=== PATIENT | female | born 1980 | race Caucasian/White ===

== ENCOUNTER 2018-01-22 02:26 | Observation (INO) | payer BC, OTHER ==
[2018-01-22] MEDS ORDERED: Sodium Chloride 0.9% 1,000 ML IV STA ×2 (03:26→06:48)
--- NOTE | 2018-01-22 03:30 | ED PDOC ---
Arrival/HPI - General Chief Complaint: Abdominal Pain Time Seen by Provider: 01/22/18 02:27 Historian: Patient - History of Present Illness Narrative History of Present Illness (Text): 01/22/18 03:38 A 37 year old female presents to the emergency department complaining of sudden onset abdominal cramp-like discomfort, more on the left side of abdomen. Patient reports pain developed after eating out at a restaurant earlier today. Patient reports pain associated with nausea and an episode of vomiting. Patient denies any fever, back pain, urinary complaints or any other complaints at this time. Symptom Onset: Sudden Symptom Course: Unchanged Activities at Onset: Rest Context: Home Past Medical History - Provider Review Nursing Documentation Reviewed: Yes - Infectious Disease Hx of Infectious Diseases: None - Tetanus Immunization Tetanus Immunization: Unknown - Past Medical History Past Medical History: No Previous - Cardiac Hx Cardiac Disorders: No - Pulmonary Hx Asthma: Yes - Neurological Hx Migraine: Yes - HEENT Hx HEENT Disorder: No - Renal Hx Renal Disorder: No - Endocrine/Metabolic Hx Endocrine Disorders: No - Hematological/Oncological Hx Blood Disorders: No - Integumentary Hx Dermatological Disorder: No - Musculoskeletal/Rheumatological Hx Musculoskeletal Disorders: No - Gastrointestinal Hx Gastrointestinal Disorders: No - Genitourinary/Gynecological Hx Genitourinary Disorders: No - Psychiatric Hx Psychophysiologic Disorder: No Hx Depression: No Hx Emotional Abuse: No Hx Physical Abuse: No Hx Substance Use: No - Surgical History Other/Comment: tubaligation reversal tummy tuck - Anesthesia Hx Anesthesia: No - Suicidal Assessment Feels Threatened In Home Enviroment: No Family/Social History - Physician Review Nursing Documentation Reviewed: Yes Family/Social History: No Known Family HX Smoking Status: Never Smoked Hx Alcohol Use: No Hx Substance Use: No Hx Substance Use Treatment: No Allergies/Home Meds Allergies/Adverse Reactions: Allergies morphine Allergy (Intermediate, Verified 01/22/18 03:25) RASH Home Medications: Home Meds Medication Instructions Recorded Confirmed No Known Home Med 12/23/15 01/22/18 Review of Systems - Physician Review All systems were reviewed & negative as marked: Yes - Review of Systems Constitutional: absent: Fevers Gastrointestinal: Abdominal Pain (left side), Nausea, Vomiting Genitourinary Female: absent: Dysuria, Frequency, Hematuria, Urine Output Changes Musculoskeletal: absent: Back Pain Physical Exam Vital Signs Reviewed: Yes Vital Signs Temp Pulse Resp BP Pulse Ox 01/22/18 05:19 85 18 114/68 98 01/22/18 03:19 98.1 F 80 19 136/61 100 Temperature: Afebrile Blood Pressure: Normal Pulse: Regular Respiratory Rate: Normal Appearance: Positive for: Well-Appearing, Non-Toxic, Comfortable Pain Distress: None Mental Status: Positive for: Alert and Oriented X 3 - Systems Exam Head: Present: Atraumatic, Normocephalic Pupils: Present: PERRL Extroacular Muscles: Present: EOMI Conjunctiva: Present: Normal Mouth: Present: Moist Mucous Membranes Neck: Present: Normal Range of Motion Respiratory/Chest: Present: Clear to Auscultation, Good Air Exchange. No: Respiratory Distress, Accessory Muscle Use Cardiovascular: Present: Regular Rate and Rhythm, Normal S1, S2. No: Murmurs Abdomen: Present: Tenderness (left lower abd area), Normal Bowel Sounds, Guarding (voluntary). No: Rebound Back: Present: Normal Inspection Upper Extremity: Present: Normal Inspection. No: Cyanosis, Edema Lower Extremity: Present: Normal Inspection. No: Edema Neurological: Present: GCS=15, CN II-XII Intact, Speech Normal Skin: Present: Warm, Dry, Normal Color. No: Rashes Psychiatric: Present: Alert, Oriented x 3, Normal Insight, Normal Concentration Medical Decision Making ED Course and Treatment: 01/22/18 03:34 Impression: A 37 year old female with abdominal pain, nausea and vomiting. Plan: -- labs -- Urinalysis -- Pepcid, Toradol, IV fluids, Zofran -- Reassess and disposition Progress Notes: CT Abdomen and Pelvis With Intravenous Contrast FINDINGS: Lung bases: Minimal atelectasis/scarring. ABDOMEN: Liver: Probable fatty infiltration. < 0.5 cm lesion. Gallbladder and bile ducts: No calcified stones. No ductal dilation. Pancreas: No ductal dilation. No mass. Spleen: No splenomegaly. Adrenals: No mass. Kidneys and ureters: Too small to characterize lesion within LEFT kidney. No hydronephrosis. Stomach and bowel: Segmental areas of apparent aolk-ve-skstdpld mural thickening of large bowel. No associated inflammatory stranding. No obstruction. PELVIS: Appendix: Normal caliber. No definite inflammation. Bladder: Unremarkable. Reproductive: Multiple ovarian follicles. ABDOMEN and PELVIS: Intraperitoneal space: Trace free fluid within pelvis. No free air. Bones/joints: No acute fracture. Soft tissues: Unremarkable. Vasculature: Unremarkable. No aneurysm. Lymph nodes: No pathologically enlarged lymph nodes. IMPRESSION: 1. Probable colitis. Clinical correlation is needed. 2. Liver lesion. For patients with low to average risk of malignancy, no further follow-up is necessary. For patients with high risk of malignancy (known malignancy that can metastasize or other risk factors), recommend follow-up abdominal CT or MR in 6 months. 3. Incidental/non-acute findings are described above. Dictated and Authenticated by: Bernard Braun MD 01/22/2018 6:04 AM Eastern Time ([place] & [place]) 01/22/18 06:46 Case was d/w who accepts to his service.Request on consult.president + publisher notified. - Lab Interpretations Lab Results: 01/22/18 03:55 01/22/18 03:55 Lab Results 01/22/18 03:55: WBC 14.3 H D, RBC 4.39, Hgb 12.4, Hct 36.7, MCV 83.6, MCH 28.2, MCHC 33.8, RDW 12.6, Plt Count 247, MPV 9.3 01/22/18 03:55: Sodium 142, Potassium 3.8, Chloride 106, Carbon Dioxide 24, Anion Gap 17, BUN 14, Creatinine 1.0, Est GFR ( Amer) > 60, Est GFR (Non- Af Amer) > 60, Random Glucose 139 H, Calcium 8.7, Total Bilirubin 0.2, AST 38 H , ALT 71 H, Alkaline Phosphatase 52, Total Protein 6.8, Albumin 4.1, Globulin 2.7, Albumin/Globulin Ratio 1.5, Lipase 100 I have reviewed the lab results: Yes - RAD Interpretation Radiology Orders: 01/22/18 04:47 ABD & PELVIS IV CONTRAST ONLY [CT] Stat - Medication Orders Current Medication Orders: Ceftriaxone Sodium (Rocephin 1 Gram Ivpb) 1 gm in 100 mls @ 200 mls/hr IV ONCE STA PRN Reason: Protocol Stop: 01/22/18 07:10 Metronidazole (Flagyl) 500 mg in 100 mls @ 100 mls/hr IV STAT STA PRN Reason: Protocol Stop: 01/22/18 07:40 Discontinued Medications Famotidine (Pepcid) 20 mg IVP STAT STA Stop: 01/22/18 03:27 Last Admin: 01/22/18 03:53 Dose: 20 mg IVP Administration Document 01/22/18 03:53 RG (Rec: 01/22/18 03:59 RG [id number]) Charges for Administration # of IVP Administrations 1 Sodium Chloride (Sodium Chloride 0.9%) 1,000 mls @ 999 mls/hr IV .Q1H1M STA Stop: 01/22/18 04:26 Last Admin: 01/22/18 03:57 Dose: 999 mls/hr eMAR Start Stop Document 01/22/18 03:57 RG (Rec: 01/22/18 03:59 RG [id number]) Intravenous Solution Start Date 01/22/18 Start Time 03:57 Ketorolac Tromethamine (Toradol) 30 mg IVP ONCE ONE Stop: 01/22/18 03:27 Last Admin: 01/22/18 03:54 Dose: 30 mg MAR Pain Assessment Document 01/22/18 03:54 RG (Rec: 01/22/18 04:00 RG [id number]) Pain Reassessment Is this a pain reassessment? Yes Sleep Is patient sleeping during reassessment? No Presence of Pain Presence of Pain Yes Pain Scale Used Pain Scale Used Numeric Location Upper or Lower Lower Pain Location Body Site Abdomen Description Description Constant Pain Behavior Moaning Guarding Irritability Rubbing Site IVP Administration Document 01/22/18 03:54 RG (Rec: 01/22/18 04:00 RG [id number]) Charges for Administration # of IVP Administrations 1 Re-Assess: MAR Pain Assessment Document 01/22/18 04:54 RG (Rec: 01/22/18 05:27 RG [id number]) Pain Reassessment Is this a pain reassessment? Yes Sleep Is patient sleeping during reassessment? No Presence of Pain Presence of Pain No Ondansetron HCl (Zofran Inj) 4 mg IVP ONCE ONE Stop: 01/22/18 03:27 Last Admin: 01/22/18 03:34 Dose: 4 mg IVP Administration Document 01/22/18 03:34 RG (Rec: 01/22/18 04:00 RG [id number]) Charges for Administration # of IVP Administrations 1 - Scribe Statement The provider has reviewed the documentation as recorded by the Scribe Belqes Cassie Provider Scribe Attestation: All medical record entries made by the Scribe were at my direction and personally dictated by me. I have reviewed the chart and agree that the record accurately reflects my personal performance of the history, physical exam, medical decision making, and the department course for this patient. I have also personally directed, reviewed, and agree with the discharge instructions and disposition. Disposition/Present on Arrival - Present on Arrival Any Indicators Present on Arrival: No History of DVT/PE: No History of Uncontrolled Diabetes: No Urinary Catheter: No History of Decub. Ulcer: No History Surgical Site Infection Following: None - Disposition Have Diagnosis and Disposition been Completed?: Yes Diagnosis: Abdominal pain, Colitis Disposition: HOSPITALIZED Disposition Time: 06:46 Patient Plan: Observation Condition: STABLE Forms: [facility] (Spanish)
[2018-01-22 04:05] LABS: HEMOGLOBIN 12.4 g/dL (12.0-16.0); MEAN CELL VOLUME 83.6 fl (80.0-105.0); MEAN CORPUSCULAR HEMOGLOBIN 28.2 pg (25.0-35.0); MEAN CORPUSCULAR HGB CONC 33.8 g/dl (31.0-37.0); MEAN PLATELET VOLUME 9.3 fl (7.0-11.0); RBC 4.39 10^6/uL (3.5-6.1); RED CELL DISTRIBUTION WIDTH 12.6 % (11.5-14.5); WHITE BLOOD COUNT 14.3 10^3/ul (4.5-11.0)
[2018-01-22 04:16] LABS: ALB/GLOB RATIO 1.5 (1.1-1.8)
[2018-01-22 04:43] LABS: ALBUMIN 4.1 g/dL (3.0-4.8); ALT/SGPT 71 U/L (7-56); AST/SGOT 38 U/L (14-36); BLOOD UREA NITROGEN 14 mg/dL (7-21); CALCIUM 8.7 mg/dL (8.4-10.5); GFR AFRICAN-AMERICAN > 60; GFR NON-AFRICAN AMERICAN > 60; LIPASE 100 U/L (23-300)
[2018-01-22] MEDS ORDERED: Iohexol 350 MG/100 ML VIAL ONE (04:50)
--- NOTE | 2018-01-22 06:04 | CT ---
EXAM: CT Abdomen and Pelvis With Intravenous Contrast CLINICAL HISTORY: 37 years old, female; Pain; Abdominal pain TECHNIQUE: Axial computed tomography images of the abdomen and pelvis with intravenous contrast. All CT scans at this facility use one or more dose reduction techniques, viz.: automated exposure control; ma/kV adjustment per patient size (including targeted exams where dose is matched to indication; i.e. head); or iterative reconstruction technique. Coronal and sagittal reformatted images were created and reviewed. CONTRAST: 96 mL of OMNI 350 administered intravenously. COMPARISON: No relevant prior studies available. FINDINGS: Lung bases: Minimal atelectasis/scarring. ABDOMEN: Liver: Probable fatty infiltration. < 0.5 cm lesion. Gallbladder and bile ducts: No calcified stones. No ductal dilation. Pancreas: No ductal dilation. No mass. Spleen: No splenomegaly. Adrenals: No mass. Kidneys and ureters: Too small to characterize lesion within LEFT kidney. No hydronephrosis. Stomach and bowel: Segmental areas of apparent iotu-hu-iokwuqtq mural thickening of large bowel. No associated inflammatory stranding. No obstruction. PELVIS: Appendix: Normal caliber. No definite inflammation. Bladder: Unremarkable. Reproductive: Multiple ovarian follicles. ABDOMEN and PELVIS: Intraperitoneal space: Trace free fluid within pelvis. No free air. Bones/joints: No acute fracture. Soft tissues: Unremarkable. Vasculature: Unremarkable. No aneurysm. Lymph nodes: No pathologically enlarged lymph nodes. IMPRESSION: 1. Probable colitis. Clinical correlation is needed. 2. Liver lesion. For patients with low to average risk of malignancy, no further follow-up is necessary. For patients with high risk of malignancy (known malignancy that can metastasize or other risk factors), recommend follow-up abdominal CT or MR in 6 months. 3. Incidental/non-acute findings are described above.
[2018-01-22] MEDS ORDERED: cefTRIAXone 1 gm 1 GM/100 ML BAG IV STA (06:41)
[2018-01-22] MEDS ORDERED: metroNIDAZOLE IV 500 mg/100 ml 500 MG/100 ML BAG IV STA (06:41)
[2018-01-22 07:28] LABS: URINE BILIRUBIN NEGATIVE (NEGATIVE); URINE BLOOD NEGATIVE (NEGATIVE); URINE GLUCOSE (UA) NEGATIVE (NEGATIVE); URINE LEUKOCYTE ESTERASE NEGATIVE Leu/uL (NEGATIVE); URINE PROTEIN NEGATIVE mg/dL (<30 mg/dL); URINE UROBILINOGEN 0.2 E.U./dL (<1 E.U./dL)
[2018-01-22 07:32] LABS: INR 0.91 (0.93-1.08); PARTIAL THROMBOPLASTIN TIME 23.6 Seconds (25.1-36.5); PROTHROMBIN TIME 10.4 SECONDS (9.4-12.5)
[2018-01-22 07:34] LABS: URINE APPEARANCE CLEAR (CLEAR); URINE COLOR YELLOW (YELLOW)
[2018-01-22] MEDS: metroNIDAZOLE IV 500 mg/100 ml 500 MG/100 ML BAG IVPB SCH ×3 (07:58→21:57)
--- NOTE | 2018-01-22 08:12 | CP.PCM.HP ---
History of Present Illness - History of Present Illness History of Present Illness: H&P for Dr. Erwin's service - Oscar PGY2 cc: abdominal pain HPI: Patient is a 37yo female with no significant past medical history that presented c/o abdominal pain. She reported that the pain localized to the left upper quadrant and was non-radiating and dull in sensation. The pain started at approximately 2am and woke her from her sleep. She admitted to eating some questionable food during lunch. Her abdominal pain was associated with nausea, nonbilious nonbloody vomiting and chills. Prior to this episode she was in her usual state of health and had never experienced anything like this in the past. No apparent alleviating/exacerbating factors. Denies chest pain, palpitations, SOB, fevers, cough, sick contacts, focal weakness, numbness, tingling. 12point ROS as per HPI above otherwise negative PMHx: as stated above PSHx: , tubal ligation, reversal of tubal ligation, left lumpectomy, abdominoplasty Allergies: morphine Medications: denies Social Hx: denies tobacco use, social alcohol use; denies illicit drug use Family Hx: reviewed, non-contributory Present on Admission - Present on Admission Any Indicators Present on Admission: No Past Patient History - Infectious Disease Hx of Infectious Diseases: None - Tetanus Immunizations Tetanus Immunization: Unknown - Past Social History Smoking Status: Never Smoked - CARDIAC Hx Cardiac Disorders: No - PULMONARY Hx Asthma: Yes - NEUROLOGICAL Hx Migraine: Yes - HEENT Hx HEENT Problems: No - RENAL Hx Chronic Kidney Disease: No - ENDOCRINE/METABOLIC Hx Endocrine Disorders: No - HEMATOLOGICAL/ONCOLOGICAL Hx Blood Disorders: No - INTEGUMENTARY Hx Dermatological Problems: No - MUSCULOSKELETAL/RHEUMATOLOGICAL Hx Musculoskeletal Disorders: No - GASTROINTESTINAL Hx Gastrointestinal Disorders: No - GENITOURINARY/GYNECOLOGICAL Hx Genitourinary Disorders: No - PSYCHIATRIC Hx Psychophysiologic Disorder: No Hx Depression: No Hx Emotional Abuse: No Hx Physical Abuse: No Hx Substance Use: No - SURGICAL HISTORY Other/Comment: tubaligation reversal tummy tuck - ANESTHESIA Hx Anesthesia: No Meds Allergies/Adverse Reactions: Allergies Allergy/AdvReac Type Severity Reaction Status Date / Time morphine Allergy Intermediate RASH Verified 01/22/18 03:25 Physical Exam - Constitutional Appears: No Acute Distress - Head Exam Head Exam: ATRAUMATIC, NORMAL INSPECTION, NORMOCEPHALIC - Eye Exam Eye Exam: EOMI Pupil Exam: PERRL - ENT Exam ENT Exam: Mucous Membranes Moist - Respiratory Exam Respiratory Exam: Clear to Auscultation Bilateral. absent: Rales, Rhonchi, Wheezes - Cardiovascular Exam Cardiovascular Exam: RRR, +S1, +S2. absent: Gallop, Rubs - GI/Abdominal Exam GI & Abdominal Exam: Soft, Tenderness (left-sided tenderness to palpation). absent: Distended, Firm, Guarding, Rebound - Extremities Exam Extremities exam: Positive for: normal inspection. Negative for: pedal edema - Neurological Exam Neurological exam: Alert, CN II-XII Intact, Oriented x3 - Psychiatric Exam Psychiatric exam: Normal Affect, Normal Mood - Skin Skin Exam: Dry, Intact, Normal Color, Warm Results - Vital Signs Recent Vital Signs: Last Vital Signs Temp 98 F 01/22/18 07:27 Pulse 82 01/22/18 07:27 Resp 16 01/22/18 07:27 BP 103/42 L 01/22/18 07:27 Pulse Ox 97 01/22/18 07:27 - Labs Result Diagrams: 01/22/18 03:55 01/22/18 03:55 Labs: Laboratory Results - last 24 hr 01/22/18 01/22/18 06:50 07:15 PT 10.4 INR 0.91 L APTT 23.6 L Urine Color Yellow Urine Appearance Clear Urine pH 6.0 Ur Specific [place] 1.010 Urine Protein Negative Urine Glucose (UA) Negative Urine Ketones Negative Urine Blood Negative Urine Nitrate Negative Urine Bilirubin Negative Urine Urobilinogen 0.2 Ur Leukocyte Esterase Negative Assessment & Plan - Assessment and Plan (Free Text) Plan: 37yo female with no significant history presents c/o left-sided abdominal pain associated with nausea/vomiting 1. Abdominal pain -afebrile with leukocytosis of 14.3 -UA negative -mild transaminitis -CT abd/pelvis revealed probable colitis, liver lesion < 0.5cm, probable fatty infiltration of the liver -IVF hydration -Zofran for nausea/vomiting -pain control -Continue protonix -liquid diet advanced as tolerated -Received rocephin/flagyl in the ED, continue with cefepime/flagyl -hepatitis panel pending -GI consulted - Dr. Noel 2. GI/DVT prophylaxis -Protonix/SCD's Patient seen and case discussed with attending, Dr. Erwin - Date & Time Date: 01/22/18 Time: 08:13
[2018-01-22 11:19] LABS: HDL CHOLESTEROL 39 mg/dL (29-60)
[2018-01-22 11:30] LABS: LDL CHOLESTEROL 54 mg/dL (0-129)
[2018-01-22] MEDS: Enoxaparin 40 mg Syringe SC SCH (13:31)
[2018-01-22] MEDS: Cefepime 1gm in NS 100ml 1 GM/100 ML BAG IVPB SCH ×2 (13:32→21:56)
[2018-01-22] MEDS ORDERED: Pneumococcal 23-Valent Vaccine IM ONE (14:56)
[2018-01-22 17:09] LABS: HEPATITIS B SURFACE AG Negative (NEGATIVE)
[2018-01-22 17:14] LABS: HEPATITIS A IGM NEGATIVE (NEGATIVE); HEPATITIS B CORE AB NEGATIVE (NEGATIVE)
[2018-01-22 17:26] LABS: HEPATITIS C ANTIBODY NEGATIVE (NEGATIVE)
[2018-01-22 18:15] VITALS: RESP 20
--- NOTE | 2018-01-22 21:31 | CON ---
DATE: REQUESTING PHYSICIAN: Moy Erwin MD REASON FOR CONSULTATION: I have been asked to see this 37-year-old female, previously healthy, who comes to the emergency room after waking up in the middle of the night with severe mid abdominal pain associated with nausea and vomiting. In the emergency room, patient had one episode of diarrhea. Patient states that her last meal was approximately 8:00 at night from a [employer]. Patient has never experienced abdominal pain as what she experienced prior to coming into the hospital. She denies any hematemesis, rectal bleeding, fevers, chills, recent travel or recent use of antibiotics. CT scan of the abdomen and pelvis performed in the emergency room showed some mural thickening of the large intestine, fatty liver and indeterminate small lesion in the liver measuring less than 0.5 cm and multiple ovarian follicles with a small amount of trace free fluid in the pelvis. She denies any further nausea or vomiting, but still has some mid abdominal pain. PAST MEDICAL HISTORY: Unremarkable. PAST SURGICAL HISTORY: Notable for , tubal ligation, reversal of tubal ligation, abdominoplasty and left lumpectomy. SOCIAL HISTORY: She denies cigarette smoking, alcohol use. FAMILY HISTORY: Noncontributory. MEDICATIONS: None. REVIEW OF SYSTEMS: A 14-point review of systems is notable for diffuse mid abdominal pain, nausea, vomiting and one episode of diarrhea. PHYSICAL EXAMINATION: GENERAL: Well-developed female lying in bed, in no acute distress. VITAL SIGNS: Reveal temperature of 98, blood pressure 103/42, heart rate 82. HEENT: Reveal sclerae to be white. Conjunctivae pink. NECK: Supple. CHEST: Lungs are clear. HEART: Reveals regular rate and rhythm. ABDOMEN: Soft, mild diffuse mid abdominal tenderness. No rebound. No guarding. Obese. EXTREMITIES: Show no edema. LABORATORY DATA: Reveals white blood cell count 14.3, hemoglobin 12.4. Chemistries reveal normal electrolytes, blood sugar 139, AST 38, ALT 71. Lipase is normal. IMPRESSION: 1. Probable acute enterocolitis secondary to food poisoning. 2. Mildly elevated liver enzymes, most likely secondary to hepatic steatosis. RECOMMENDATIONS: 1. Check stool for culture and sensitivity, and ova and parasites. 2. Gradual diet advancement as tolerated. She is currently on clear liquid diet. Abram Noel MD [facility] # [id number]
[2018-01-22] MEDS: Pantoprazole 40 mg EC Tab PO SCH (21:56)
[2018-01-23] MEDS: metroNIDAZOLE IV 500 mg/100 ml 500 MG/100 ML BAG IVPB SCH (06:28)
[2018-01-23] MEDS: Cefepime 1gm in NS 100ml 1 GM/100 ML BAG IVPB SCH (06:28)
[2018-01-23] MEDS: Pantoprazole 40 mg EC Tab PO SCH (06:29)
[2018-01-23 07:33] LABS: BASO # 0.03 K/mm3 (0.0-2.0); BASO % 0.5 % (0.0-3.0); EOS # 0.2 (0.0-0.7); EOS % 3.2 % (1.5-5.0); GRAN # 2.96 (1.4-6.5); GRAN % 49.8 % (50.0-68.0); HEMOGLOBIN 10.6 g/dL (12.0-16.0); LYMPH # 2.4 (1.2-3.4); LYMPH % 41.1 % (22.0-35.0); MEAN CELL VOLUME 84.2 fl (80.0-105.0); MEAN CORPUSCULAR HEMOGLOBIN 27.5 pg (25.0-35.0); MEAN CORPUSCULAR HGB CONC 32.7 g/dl (31.0-37.0); MEAN PLATELET VOLUME 9.4 fl (7.0-11.0); MONO # 0.3 (0.1-0.6); MONO % 5.4 % (1.0-6.0); RBC 3.85 10^6/uL (3.5-6.1); RED CELL DISTRIBUTION WIDTH 13.1 % (11.5-14.5); WHITE BLOOD COUNT 5.9 10^3/ul (4.5-11.0)
[2018-01-23 08:03] LABS: ALB/GLOB RATIO 1.2 (1.1-1.8); ALBUMIN 2.8 g/dL (3.0-4.8); ALT/SGPT 55 U/L (7-56); AST/SGOT 27 U/L (14-36); BILIRUBIN,DIRECT 0.1 mg/dL (0.0-0.4); BLOOD UREA NITROGEN 5 mg/dL (7-21); CALCIUM 7.9 mg/dL (8.4-10.5); GFR AFRICAN-AMERICAN > 60; GFR NON-AFRICAN AMERICAN > 60
--- NOTE | 2018-01-23 08:31 | HP ---
DATE OF EXAM: 01/22/2018 The patient is seen, examined in room 566, bed 1. The patient's vital signs, diagnostic data reviewed. Please refer to the detailed history and physical examination by the medical records supervisor for complete and further details. IMPRESSION AND PLAN: 1. Abdominal pain and cramping status post after eating outside food. 2. Abdominal pain. 3. Leukocytosis. 4. Transaminitis. 5. Hyperglycemia. 6. Probable hepatic steatosis and fatty liver. 7. Minimal atelectasis and scarring. 8. Questionable and probable colitis with segmental areas of [id number]-[id number]-[id number] mural thickening of the large bowel. 9. Less than 0.5-cm hepatic lesion, etiology undetermined. 10. History of migraine, history of tubal ligation, history of section, history of abdominoplasty, history of left breast cyst surgery, history of tummy tuck and abdominoplasty. 11. Questionable gastroenteritis versus colitis with abdominal pain and cramping. 12. History of tubal ligation and reversal, history of tummy tuck and abdominoplasty. PLAN AT THIS TIME: The patient has been admitted through the emergency room. The patient has been ordered hepatitis panel, CMP, LFT, magnesium, phosphorus. Blood cultures are ordered. CURRENT CONSULTATION: Gastroenterology. CURRENT MEDICATIONS: Flagyl 500 mg every 8; cefepime 1 g IV every 8; Protonix 40 every 12; IV fluid 0.9 normal saline at 100 mL an hour; Zofran 4 mg IV every 4; liquid diet ordered; out of bed ordered; SCDs, MICHELE stockings ordered. The patient at present is to be continued on GI, DVT prophylaxis. The patient has been advised out of bed to chair. At present, the patient's further management will be dependent upon the patient's clinical condition, hemodynamic status and as per the patient response to therapeutic intervention, as per the patient's diagnostic test results and as per recommendation by Gastroenterology. All of the above discussed and explained to the patient at length and all questions concerned answered, which she acknowledged and understand. Please refer to the detailed history and physical examination by the medical records supervisor for all further details. Dictated and electronically signed, not read. Moy Erwin MD
[2018-01-23] MEDS: Enoxaparin 40 mg Syringe SC SCH (09:00)
[2018-01-23 10:17] VITALS: BP 96/49; PULSE 74; TEMP 98.1; O2SAT 98
--- NOTE | 2018-01-23 11:22 | PN ---
DATE: 01/23/2018 SUBJECTIVE: The patient feels better. Abdominal cramping is less. She has not had any bowel movements or diarrhea. She denies any further nausea, vomiting. She is tolerating clear liquids. OBJECTIVE: VITAL SIGNS: Reveal temperature of 97.9, blood pressure 105/61, heart rate of 77. HEENT: Reveal sclerae to be white. Conjunctivae pink. NECK: Supple. CHEST: Lungs are clear. HEART: Reveals a regular rate and rhythm. ABDOMEN: Soft; mild diffuse tenderness, less than previously. No palpable mass. EXTREMITIES: Show no edema. LABORATORY DATA: Reveal hemoglobin 10.6, white blood cell count 5.9, platelet count 215,000, BUN 5, creatinine 0.7. IMPRESSION: Acute gastroenteritis secondary to food poisoning. RECOMMENDATIONS: 1. Advance to a low-fat, low-residue diet. 2. The patient is stable from GI standpoint for discharge with outpatient followup. Abram Noel MD
--- NOTE | 2018-01-23 12:04 | CP.PCM.DIS ---
Provider - Provider Date of Admission: 01/22/18 06:47 Attending physician: Moy Erwin MD Primary care physician: NO PRIMARY CARE PROVIDER Consults: GI - Dr. Noel Time Spent in preparation of Discharge (in minutes): 30 Hospital Course - Lab Results Lab Results: Micro Results 01/22/18 07:30 Blood Blood Culture - Preliminary NO GROWTH AFTER 24 HOURS 01/22/18 06:50 Blood Blood Culture - Preliminary NO GROWTH AFTER 24 HOURS Most Recent Lab Values WBC 5.9 10^3/ul (4.5-11.0) D 01/23/18 07:10 RBC 3.85 10^6/uL (3.5-6.1) 01/23/18 07:10 Hgb 10.6 g/dL (12.0-16.0) L 01/23/18 07:10 Hct 32.4 % (36.0-48.0) L 01/23/18 07:10 MCV 84.2 fl (80.0-105.0) 01/23/18 07:10 MCH 27.5 pg (25.0-35.0) 01/23/18 07:10 MCHC 32.7 g/dl (31.0-37.0) 01/23/18 07:10 RDW 13.1 % (11.5-14.5) 01/23/18 07:10 Plt Count 215 10^3/uL (120.0-450.0) 01/23/18 07:10 MPV 9.4 fl (7.0-11.0) 01/23/18 07:10 Gran % 49.8 % (50.0-68.0) L 01/23/18 07:10 Lymph % (Auto) 41.1 % (22.0-35.0) H 01/23/18 07:10 [place] % (Auto) 5.4 % (1.0-6.0) 01/23/18 07:10 Eos % (Auto) 3.2 % (1.5-5.0) 01/23/18 07:10 Baso % (Auto) 0.5 % (0.0-3.0) 01/23/18 07:10 Gran # 2.96 (1.4-6.5) 01/23/18 07:10 Lymph # (Auto) 2.4 (1.2-3.4) 01/23/18 07:10 [place] # (Auto) 0.3 (0.1-0.6) 01/23/18 07:10 Eos # (Auto) 0.2 (0.0-0.7) 01/23/18 07:10 Baso # (Auto) 0.03 K/mm3 (0.0-2.0) 01/23/18 07:10 PT 10.4 SECONDS (9.4-12.5) 01/22/18 06:50 INR 0.91 (0.93-1.08) L 01/22/18 06:50 APTT 23.6 Seconds (25.1-36.5) L 01/22/18 06:50 Sodium 144 mmol/L (132-148) 01/23/18 07:10 Potassium 3.6 mmol/L (3.6-5.0) 01/23/18 07:10 Chloride 115 mmol/L (98-107) H 01/23/18 07:10 Carbon Dioxide 21 mmol/L (21-33) 01/23/18 07:10 Anion Gap 11 (10-20) 01/23/18 07:10 BUN 5 mg/dL (7-21) L 01/23/18 07:10 Creatinine 0.7 mg/dl (0.7-1.2) 01/23/18 07:10 Est GFR ( Amer) > 60 01/23/18 07:10 Est GFR (Non-Af Amer) > 60 01/23/18 07:10 Random Glucose 86 mg/dL (70-110) 01/23/18 07:10 Calcium 7.9 mg/dL (8.4-10.5) L 01/23/18 07:10 Magnesium 1.8 mg/dL (1.7-2.2) 01/23/18 07:10 Total Bilirubin 0.2 mg/dL (0.2-1.3) 01/23/18 07:10 Direct Bilirubin 0.1 mg/dL (0.0-0.4) 01/23/18 07:10 AST 27 U/L (14-36) 01/23/18 07:10 ALT 55 U/L (7-56) 01/23/18 07:10 Alkaline Phosphatase 39 U/L (38-126) 01/23/18 07:10 Total Protein 5.3 g/dL (5.8-8.3) L 01/23/18 07:10 Albumin 2.8 g/dL (3.0-4.8) L 01/23/18 07:10 Globulin 2.4 gm/dL 01/23/18 07:10 Albumin/Globulin Ratio 1.2 (1.1-1.8) 01/23/18 07:10 Triglycerides 53 mg/dL (35-160) 01/22/18 10:50 Cholesterol 108 mg/dL (130-200) L 01/22/18 10:50 LDL Cholesterol Direct 54 mg/dL (0-129) 01/22/18 10:50 HDL Cholesterol 39 mg/dL (29-60) 01/22/18 10:50 Lipase 100 U/L (23-300) 01/22/18 03:55 Urine Color Yellow (YELLOW) 01/22/18 07:15 Urine Appearance Clear (CLEAR) 01/22/18 07:15 Urine pH 6.0 (4.7-8.0) 01/22/18 07:15 Ur Specific [place] 1.010 (1.005-1.035) 01/22/18 07:15 Urine Protein Negative mg/dL (<30 mg/dL) 01/22/18 07:15 Urine Glucose (UA) Negative mg/dL (NEGATIVE) 01/22/18 07:15 Urine Ketones Negative mg/dL (NEGATIVE) 01/22/18 07:15 Urine Blood Negative (NEGATIVE) 01/22/18 07:15 Urine Nitrate Negative (NEGATIVE) 01/22/18 07:15 Urine Bilirubin Negative (NEGATIVE) 01/22/18 07:15 Urine Urobilinogen 0.2 E.U./dL (<1 E.U./dL) 01/22/18 07:15 Ur Leukocyte Esterase Negative Lia/uL (NEGATIVE) 01/22/18 07:15 Hepatitis A IgM Ab Negative (NEGATIVE) 01/22/18 03:50 Hep Bs Antigen Negative (NEGATIVE) 01/22/18 03:50 Hep B Core IgM Ab Negative (NEGATIVE) 01/22/18 03:50 Hepatitis C Antibody Negative (NEGATIVE) 01/22/18 03:50 HIV 1&2 Ag/Ab, 4th Gen Nonreactive (Nonreactive) 01/22/18 03:50 - Hospital Course Hospital Course: 37yo female with no significant past medical history presented c/o abdominal pain associated with nausea and vomiting that started in the middle of the night and woke her from her sleep. She reported that the pain localized to the left upper quadrant and was non-radiating and dull in sensation. She admitted to eating some questionable food during the day specifically from a halal food truck. A CT abd/pelvis revealed probable colitis and GI was consulted for evaluation. She was treated symptomatically and started on IV antibiotics. Her symptoms improved and her diet was slowly advanced which she tolerated without issue. She reported improvement of her symptoms and was cleared by GI for discharge. She was agreeable to follow up with a PMD within 1 week of discharge and return to the emergency room should she have any worsening of her symptoms. Discharge Exam - Head Exam Head Exam: ATRAUMATIC, NORMAL INSPECTION, NORMOCEPHALIC - Eye Exam Eye Exam: EOMI, PERRL - ENT Exam ENT Exam: Mucous Membranes Moist - Respiratory Exam Respiratory Exam: Clear to PA & Lateral. absent: Rales, Rhonchi, Wheezes - Cardiovascular Exam Cardiovascular Exam: RRR, +S1, +S2. absent: Clicks, Gallop, Rubs - GI/Abdominal Exam GI & Abdominal Exam: Soft. absent: Distended, Firm, Guarding, Rebound, Tenderness - Extremities Exam Extremities exam: normal inspection - Back Exam Back exam: NORMAL INSPECTION - Neurological Exam Neurological exam: Alert, CN II-XII Intact, Normal Gait, Oriented x3 - Psychiatric Exam Psychiatric exam: Normal Affect, Normal Mood - Skin Skin Exam: Dry, Intact, Normal Color, Warm Discharge Plan - Discharge Medications Prescriptions: Lactobacillus Acidophilus [Bacid Acidophilus] 1 cap PO BID PRN #15 cap PRN Reason: Diarrhea - Follow Up Plan Condition: STABLE Disposition: HOME/ ROUTINE Additional Instructions: 1. Follow up with Dr. Erwin within 1 week of discharge. 2. Follow low-fat diet upon discharge and gradually advance as tolerated 3. Return to the emergency room should your symptoms worsen Referrals: Moy Erwin MD [Staff Provider] -
--- NOTE | 2018-01-24 02:43 | DS ---
FINAL PROGRESS NOTE AND DISCHARGE SUMMARY LOCATION: The patient was seen in room 566, bed 1. HISTORY: Patient is seen lying in the bed. Patient states that her abdominal pain symptoms have significantly improved. Patient reports some loose bowel movement. Patient states this is the first time she is having bowel movement after being admitted. Patient tolerated the diet, which was ordered in the morning. PHYSICAL EXAMINATION: VITAL SIGNS: T-max 98.1; heart rate 77, 74, 82; blood pressure 114/68, 103/42, 105/61, 96/49; respiration 16 to18 and O2 sat 98% to100%. HEENT: Head examination, normocephalic and atraumatic. HEENT examination shows pink conjunctivae. Anicteric sclerae. No oropharyngeal lesion. NECK: No neck rigidity. CHEST: Kyphosis. LUNGS: Show no rales, crackles or wheezing. CARDIOVASCULAR: S1 and S2, regular rhythm. ABDOMEN: Soft. Positive bowel sound. Very mild deep left lower quadrant tenderness. No rebound tenderness. No guarding. No rigidity. No costovertebral angle tenderness. GENITALIA: Female. RECTAL EXAMINATION: Deferred. EXTREMITIES: Show no pitting edema, no calf tenderness. No Homans sign. MUSCULOSKELETAL: Shows a body mass index of 30. NEUROLOGIC: Patient is alert, awake, oriented x3. Cranial nerves II through XII intact. Gait examination not tested. VASCULAR: Palpable pulses. DIAGNOSTICS: HIV-1 and 2 is nonreactive. Hepatitis A, B, C serologies negative. Sodium 144, potassium 3.6, chloride 115, CO2 of 21, anion gap 11, BUN 5, creatinine 0.7, GFR greater than 60, glucose 86, calcium 7.9, magnesium 1.8. LFTs are normal. Total protein 5.2, albumin 2.8, cholesterol 108, LDL 54. WBC is down to 5.8, 5.9; hemoglobin and hematocrit 10.6 and 32.4, platelet 215. Blood cultures, no growth. FINAL IMPRESSION, PLAN AND DISCHARGE DIAGNOSES: 1. Most probable acute enterocolitis secondary to food poisoning. 2. Transient transaminitis. 3. Asymptomatic hypotension. 4. Hypovolemia. 5. Dehydration. 6. Leukocytosis. 7. Normocytic anemia. 8. Acute gastroenteritis secondary to food poisoning. 9. Minimal atelectasis and scarring. 10. Hepatic steatosis. 11. Less than 5 cm hepatic lesion. 12. Large bowel segmental areas of [id number] mural thickening. 13. History of , tubal ligation, reversal of tubal ligation, history of left lumpectomy, history of migraine . 14. History of abdominoplasty and liposuction. Plan at this time, patient is to be discharged home on Bacid one capsule twice a day p.r.n. Patient has been cleared by Gastroenterology for discharge. Patient will be discharged home with followup with Dr. Erwin within 1 week. Patient has been advised low-fat diet upon discharge to gradually advance. During this hospitalization, patient was extensively explained about the details of her medical condition, diagnoses, test results, all details were explained to the patient at length. All questions concerned answered. Time spent in the entire discharge process more than 45 minutes. Dictated and electronically signed, not read. Moy Erwin MD
== END 2018-01-23 13:56 | disposition home or self-care (01) ==
LOC: ED 02:26 → ERH 06:47 → 5RNO 08:37
PROVIDERS: ADMIT Internal Medicine; ATTEND Internal Medicine
DX: A05.9 Bacterial foodborne intoxication, unspecified (principal); E86.0 Dehydration; E86.1 Hypovolemia; I95.9 Hypotension, unspecified; D64.9 Anemia, unspecified; K76.0 Fatty (change of) liver, not elsewhere classified; G43.909 Migraine, unspecified, not intractable, without status migrainosus; Z98.51 Tubal ligation status
CPT/HCPCS: 36415; 74177; 80053; 80061; 80074; 81003; 82248; 83690; 83735; 85025; 85027; 85610; 85730; 87040; 87045; 87177; 87209; 87389; 96361; 96365; 96367; 96372; 96375; 96376; 99285; G0378; J0692; J0696; J1650; J1885; J2405; J7040; Q9967